=== PATIENT | female | born 1990 | race African-American/Black ===

== ENCOUNTER 2018-04-17 20:24 | Emergency (ER) | payer OTHER ==
[~2018-04-17] VITALS: Ht 154.9 cm; Wt 68.0 kg
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
[2018-04-17] MEDS ORDERED: Norco 5mg/325mg tab ORAL ONE (21:15)
[2018-04-17] MEDS ORDERED: HYDROCODON-ACE1 EA15 ORAL (23:44)
[2018-04-17] MEDS ORDERED: IBUPROFEN600 MG ORAL (23:44)
[2018-04-17 23:48] VITALS: BP 0/0
--- NOTE | 2018-04-18 10:19 | Diagnostic Imaging Report ---
Indication: Trauma and facial pain Technique: Continuous helical transaxial imaging of the maxillofacial structures obtained without intravenous contrast administration. Coronal 2-D reformats were also obtained. Study obtained in a Siemens sensation [address] Automatic Exposure Control was utilized. Total Dose length Product (DLP): [address] Dose Index Volume (CTDIvol): 28.19 mGy Comparison: None Findings: There is no evidence of an acute fracture. Paranasal sinuses and mastoids are clear. Soft tissues are unremarkable. IMPRESSION: No acute injury appreciated. [facility] has communicated the preliminary results to the Emergency Department. Their findings are largely concordant with this report. The CT scanner at [facility] is accredited by the [employer] and the scans are performed using dose optimization techniques as appropriate to a performed exam including Automatic Exposure control.
--- NOTE | 2018-04-18 10:20 | Diagnostic Imaging Report ---
Indication: Head trauma and headache Technique: Contiguous 5 mm thick transaxial imaging of the head obtained in a Siemens Sensation [address] scanner. Soft tissue and bone windows generated. Automatic Exposure Control was utilized. Total Dose length Product (DLP): 1319.[address] Dose Index Volume (CTDIvol): 70.38 mGy Comparison: none Findings: The size and configuration of the cortical sulci, basal cisterns, and ventricles are within normal limits for age. There is no mass effect, midline shift, or edema identified. There is no evidence of acute hemorrhage or abnormal intra-axial or extra-axial fluid collections. The bones and soft tissues are unremarkable. Impression: No mass effect, edema or acute bleed. [facility] has communicated the preliminary results to the Emergency Department. Their findings are largely concordant with this report. The CT scanner at [facility] is accredited by the [employer] and the scans are performed using dose optimization techniques as appropriate to a performed exam including Automatic Exposure control.
--- NOTE | 2018-04-18 10:44 | Diagnostic Imaging Report ---
Indication: pain. Left hand pain Findings: 3 views of the left hand were obtained. Normal alignment is demonstrated. No acute fractures, erosions, or periosteal reaction are seen. Soft tissues are unremarkable. Impression: No acute findings.
== END 2018-04-17 23:48 | disposition home or self-care (01) ==
LOC: EDSEX 20:24 → EMR 21:13
DX: S00.83XA Contusion of other part of head, initial encounter (principal); S05.12XA Contusion of eyeball and orbital tissues, left eye, initial encounter; S60.222A Contusion of left hand, initial encounter; H11.32 Conjunctival hemorrhage, left eye; Y04.2XXA Assault by strike against or bumped into by another person, initial encounter; Y92.9 Unspecified place or not applicable
CPT/HCPCS: 36415; 70450; 70486; 84703; 99284